=== PATIENT | male | born 1950 | race Caucasian/White ===

== ENCOUNTER → 2022-02-25 08:01 | Outpatient (BNVA) | payer MEDICARE, BC, SELFPAY | PROVIDERS: PCP Pediatrics; Referring Provider Pediatrics; Visit Provider Specialist | DX: G31.84 Mild cognitive impairment of uncertain or unknown etiology (principal); E10.9 Type 1 diabetes mellitus without complications; Z79.4 Long term (current) use of insulin | CPT/HCPCS: 96116; 99204 ==

== ENCOUNTER → 2022-06-13 08:14 | Outpatient (BNVA) | payer MEDICARE, BC, SELFPAY | PROVIDERS: PCP Pediatrics; Referring Provider Specialist; Visit Provider Specialist | DX: G56.23 Lesion of ulnar nerve, bilateral upper limbs (principal); G56.03 Carpal tunnel syndrome, bilateral upper limbs; G31.84 Mild cognitive impairment of uncertain or unknown etiology | CPT/HCPCS: 95910; 95913; 99214 ==

== ENCOUNTER → 2023-06-17 15:10 | Outpatient (BNVA) | payer MEDICARE, BC, SELFPAY | PROVIDERS: PCP Pediatrics; Referring Provider Pediatrics; Visit Provider Specialist | DX: R29.90 Unspecified symptoms and signs involving the nervous system (principal); G31.84 Mild cognitive impairment of uncertain or unknown etiology | CPT/HCPCS: 99213 ==